=== PATIENT | female | born 1995 | race Caucasian/White ===

== ENCOUNTER 2016-11-20 01:51 | Emergency (ER) | payer BC, OTHER ==
[~2016-11-20] VITALS: Ht 175.3 cm; Wt 77.6 kg
[~2016-11-20 01:51] MED LIST: BCPILLS PO; SERT-234 PO
[2016-11-20 01:53] VITALS: TEMP 36.6; Ht 175.3 cm; Wt 77.6 kg
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
[2016-11-20] MEDS ORDERED: LAMO100T16 PO (02:12)
[2016-11-20] MEDS ORDERED: BUSP15TA70 PO (02:13)
[2016-11-20] MEDS ORDERED: DULO-24 PO (02:14)
[2016-11-20 02:36] LABS: BUN/CREATININE RATIO 11.3 (10-20); CALCIUM 8.9 mg/dl (8.5-10.1); CREATININE 0.95 mg/dl (0.60-1.20)
[2016-11-20 08:22] VITALS: BP 109/66; PULSE 86; O2SAT 97
== END 2016-11-20 08:31 | disposition home or self-care (01) ==
LOC: EDBD 01:51 → C.EDA 01:52
DX: T51.91XA Toxic effect of unspecified alcohol, accidental (unintentional), initial encounter (principal); T68.XXXA Hypothermia, initial encounter; X58.XXXA Exposure to other specified factors, initial encounter; F32.9 Major depressive disorder, single episode, unspecified; Z88.1 Allergy status to other antibiotic agents

== ENCOUNTER 2017-04-12 10:45 | Emergency (ER) | payer BC, OTHER ==
[~2017-04-12] VITALS: Ht 175.3 cm; Wt 73.2 kg
[~2017-04-12 10:45] MED LIST changes: -BCPILLS PO; +BUSP15TA70 PO; +DULO-24 PO; +LAMO100T16 PO; -SERT-234 PO
[2017-04-12 10:53] VITALS: Ht 175.3 cm; Wt 73.2 kg
[2017-04-12 13:02] VITALS: TEMP 36.5
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
[2017-04-12] MEDS ORDERED: ONDANSETRON 4MG OD TAB PO STA (14:26)
[2017-04-12] MEDS ORDERED: ONDANSETRON HOME PACK 4MG OD TAB PO ONE (14:30)
[2017-04-12] MEDS ORDERED: HIV POST EXPOSURE PROPHYLAXIS KIT ONE (14:30)
[2017-04-12] MEDS ORDERED: AZITHROMYCIN 250 MG TAB PO ONE (14:30)
[2017-04-12] MEDS ORDERED: CEFTRIAXONE SOD INJ 250 MG/ML VIAL IM ONE (14:30)
[2017-04-12] MEDS ORDERED: TRVHP PO (14:35)
[2017-04-12] MEDS ORDERED: RALT400T PO (14:35)
[2017-04-12] MEDS ORDERED: ONDA4TAB10 SL (14:38)
[2017-04-12] MEDS ORDERED: CEFTRIAXONE SOD 350MG/ML 1 GM VIAL IM ONE (14:47)
[2017-04-12] MEDS: CEFTRIAXONE SOD INJ 250 MG in SYRINGE 0 ML IM SCH ×2 (14:48→14:52)
[2017-04-12 15:02] LABS: HEMATOCRIT 44.1 % (37-47); MEAN CELL VOLUME 90.7 fL (80-100); MEAN CORPUSCULAR HGB CONC 33.1 g/dl (32-36); MEAN PLATELET VOLUME 10.4 fL (7.4-10.4); PLATELET COUNT 263 K/uL (130-400); RED BLOOD COUNT 4.86 M/uL (4.2-5.4); WHITE BLOOD COUNT 6.07 K/uL (4.8-10.8)
[2017-04-12] MEDS ORDERED: METR-162 PO (15:14)
[2017-04-12 15:32] LABS: ALT/SGPT 17 U/L (12-78); AST/SGOT 18 U/L (15-37); BLOOD UREA NITROGEN 6 mg/dl (7-18); BUN/CREATININE RATIO 8.6 (10-20); CALCIUM 8.5 mg/dl (8.5-10.1); CARBON DIOXIDE 30 mmol/L (21-32); CHLORIDE 109 mmol/L (98-107); CREATININE 0.72 mg/dl (0.60-1.20); GLUCOSE 80 mg/dl (70-99); POTASSIUM 3.6 mmol/L (3.5-5.1); SODIUM 144 mmol/L (136-145)
[2017-04-12 15:35] LABS: ALKALINE PHOSPHATASE 106 U/L (45-117)
[2017-04-12 15:53] VITALS: BP 137/79; PULSE 93; O2SAT 96
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
== END 2017-04-12 15:54 | disposition home or self-care (01) ==
LOC: C.EDB 10:47 → C.EDC 15:54
DX: T76.21XA Adult sexual abuse, suspected, initial encounter (principal); F41.9 Anxiety disorder, unspecified; F32.9 Major depressive disorder, single episode, unspecified; Z79.899 Other long term (current) drug therapy